=== PATIENT | female | born 1950 | race Caucasian/White ===

== ENCOUNTER 2023-02-07 10:59 | Day surgery (SDC) | payer MEDICARE, BC, SELFPAY ==
--- NOTE | 2023-02-07 06:52 | W.PREOPHP ---
Assessment and Plan Assessment and plan (1) Cortical age-related cataract, right eye: Status: Acute Assessment and plan: Assessment: Visually significant cataract of the right eye. Plan: Cataract extraction with lens implantation of the right eye. (2) Nuclear age-related cataract, right eye: Status: Acute Assessment and plan: Assessment: Visually significant cataract of the right eye. Plan: Cataract extraction with lens implantation of the right eye. History of Present Illness History of Present Illness Chief Complaint: Progressive decreased vision, both eyes Narrative: The patient is a 72-year-old lady with history of progressive decreased vision in both eyes at both distance and near. She notes significant difficulty with glare with night driving. On examination she was noted to have bilateral nuclear/cortical cataract with best corrected vision of 20/50 in each eye. 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 The option of cataract surgery was offered to the patient and she felt she was symptomatic enough that she wished to proceed, understanding that postoperative visual acuity will be limited by the presence of her pre-existing chorioretinopathy. Review of Systems All systems reviewed & are unremarkable except as noted in HPI and below PFSH All Active Problems Cortical age-related cataract, right eye (Acute) Nuclear age-related cataract, right eye (Acute) Medical History Barretts esophagus Central serous chorioretinopathy of both eyes De Quervain's tenosynovitis DUB (dysfunctional uterine bleeding) Generalized osteoarthritis HLD (hyperlipidemia) Hypoglycemia Insomnia Lipoma Migraine Mild persistent asthma Pleuritic chest pain Recurrent major depression pt denies this SVT (supraventricular tachycardia) 2020 TGA (transient global amnesia) TIA (transient ischemic attack) questionable-pt states they found that it was not a TIA but TGA Vitamin D deficiency Surgical History H/O cardiac radiofrequency ablation 2008 History of back surgery History of hip surgery Hx of appendectomy Hx of cataract extraction Hx of colonoscopy Hx of esophagogastroduodenoscopy Hx of excision of mass Hx of foot surgery Hx of tonsillectomy Hx of total knee replacement Hx of tubal ligation S/P skin biopsy Social History Smoking/Tobacco Use Status: Former Tobacco Use Quit Date: 07/07/77 Smoking risk assessment performed?: Yes Alcohol Intake: current Alcohol Intake frequency: a few times a week Drug use: Never Substance use type: does not use Housing: house Do you feel safe at home: Yes Do you feel safe in your relationship?: Yes Meds Allergies and Home Medications Allergies Allergy/AdvReac Type Severity Reaction Status Date / Time amoxicillin [From Augmentin] Allergy Intermediate Itching Unverified 02/07/23 11:21 clavulanic acid Allergy Intermediate Itching Unverified 02/07/23 11:21 [From Augmentin] morphine Allergy Intermediate Itching Unverified 02/07/23 11:21 sulfamethoxazole Allergy Intermediate Other (See Unverified 02/07/23 11:21 [From Bactrim] Comment) trimethoprim [From Bactrim] Allergy Intermediate Other (See Unverified 02/07/23 11:21 Comment) Dry Fruits Allergy Intermediate Other (See Uncoded 02/07/23 11:21 Comment) Home Medications Medication Instructions Recorded Confirmed Type ascorbic acid (vitamin C) 1,000 mg 1,000 mg PO DAILY 02/06/23 02/07/23 History tablet aspirin 81 mg capsule,delayed 81 mg PO DAILY 02/06/23 02/07/23 History release budesonide-formoterol HFA 160 1 inh inhalation QAM 02/06/23 02/07/23 History mcg-4.5 mcg/actuation aerosol inhaler (Symbicort) budesonide-formoterol HFA 80 1 inh inhalation DAILY 02/06/23 02/07/23 History mcg-4.5 mcg/actuation aerosol inhaler (Symbicort) fsvqkjwdgt-andkuwm-cemihtvb 50 1 cap PO Q8H PRN 02/06/23 02/07/23 History mg-325 mg-40 mg capsule calcium carbonate 600 mg calcium 600 mg PO DAILY 02/06/23 02/07/23 History (1,500 mg) tablet dexlansoprazole 60 mg 60 mg PO DAILY 02/06/23 02/07/23 History capsule,biphase delayed release (Dexilant) loratadine 10 mg tablet 10 mg PO DAILY 02/06/23 02/07/23 History lorazepam 1 mg tablet (Ativan) 1 mg PO DIRECTED 02/06/23 02/07/23 History magnesium 500 mg tablet 500 mg PO DAILY 02/06/23 02/07/23 History montelukast 10 mg tablet 10 mg PO DAILY 02/06/23 02/07/23 History Exam Eyes Other: Most recent ocular examination is significant for best corrected vision of 20/50 in each eye. Extract motility is normal. Intraocular pressure is 14 OD, 15 OS. Slit-lamp examination is significant for pupils dilating to 5 mm OU. Moderate nuclear with mild cortical cataract OU. Dilated funduscopic examination revealed disc cupping of 0.2 OD 0.15 OS with normal vessels, macula, peripheral retina and vitreous. There are some pigment clumping in the right macula. Resp Auscultation: clear to auscultation bilaterally Cardio Rate: regular rate Rhythm: regular rhythm
[2023-02-07 11:10] VITALS: BP 117/76; PULSE 64; RESP 6; TEMP 36; O2SAT 98
--- NOTE | 2023-02-07 11:16 | W.ANESPRE ---
General Info Date of Service Date Performed: 02/07/23 Height: 5 ft 6 in Weight: 78.471 kg Body Mass Index (BMI): 27.9 Surgical Procedure: Operation Date: 02/07/23 12:55 Proposed Procedure Side Surgeon p Cataract Extraction with IOL Implant Right Deondre Saunders MD Meds Allergies and Home Medications Allergies Allergy/AdvReac Type Severity Reaction Status Date / Time amoxicillin [From Augmentin] Allergy Intermediate Itching Unverified 02/07/23 11:21 clavulanic acid Allergy Intermediate Itching Unverified 02/07/23 11:21 [From Augmentin] morphine Allergy Intermediate Itching Unverified 02/07/23 11:21 sulfamethoxazole Allergy Intermediate Other (See Unverified 02/07/23 11:21 [From Bactrim] Comment) trimethoprim [From Bactrim] Allergy Intermediate Other (See Unverified 02/07/23 11:21 Comment) Dry Fruits Allergy Intermediate Other (See Uncoded 02/07/23 11:21 Comment) Home Medication Medication Instructions Recorded ascorbic acid (vitamin C) 1,000 mg 1,000 mg PO DAILY 02/06/23 tablet aspirin 81 mg capsule,delayed 81 mg PO DAILY 02/06/23 release budesonide-formoterol HFA 160 1 inh inhalation QAM 02/06/23 mcg-4.5 mcg/actuation aerosol inhaler (Symbicort) budesonide-formoterol HFA 80 1 inh inhalation DAILY 02/06/23 mcg-4.5 mcg/actuation aerosol inhaler (Symbicort) lyighfaxln-ghjjbyw-wwebzhxf 50 1 cap PO Q8H PRN 02/06/23 mg-325 mg-40 mg capsule calcium carbonate 600 mg calcium 600 mg PO DAILY 02/06/23 (1,500 mg) tablet dexlansoprazole 60 mg 60 mg PO DAILY 02/06/23 capsule,biphase delayed release (Dexilant) loratadine 10 mg tablet 10 mg PO DAILY 02/06/23 lorazepam 1 mg tablet (Ativan) 1 mg PO DIRECTED 02/06/23 magnesium 500 mg tablet 500 mg PO DAILY 02/06/23 montelukast 10 mg tablet 10 mg PO DAILY 02/06/23 Current Visit Medications: Current Medications Generic Name Dose Route Start Last Admin Trade Name Freq PRN Reason Stop Dose Admin Acetaminophen 1,000 mg 02/07/23 06:00 Acetaminophen 500 Mg Tab PO 03/09/23 05:59 Q4H PRN PRN Balanced Salt Solution 500 ml 02/07/23 06:00 Balanced Salt Soln.-Plus 500 Ml Bag OP 03/09/23 05:59 DIRECTED RNOEY Miscellaneous Medication 0 ml 02/07/23 06:00 Prednisolone 1%, Moxifloxacin 0.5%, Nepafenac 0.1% 5ml Btl OD 03/09/23 05:59 DIRECTED RONEY Miscellaneous Medication 0 ml 02/07/23 06:00 Tropicam./Phenyleph. (1/2.5%) 5 Ml Btl OD 03/09/23 05:59 DIRECTED RONEY Tetracaine HCl 0 ml 02/07/23 06:00 Tetracaine 0.5% 4 Ml Btl OD 03/09/23 05:59 DIRECTED RONEY PFSH Active Problems Active Problems: Problem Status Onset Code Cortical age-related cataract, right eye H25.011 Nuclear age-related cataract, right eye H25.11 Medical History Medical History Barretts esophagus Central serous chorioretinopathy of both eyes De Quervain's tenosynovitis DUB (dysfunctional uterine bleeding) Generalized osteoarthritis HLD (hyperlipidemia) Hypoglycemia Insomnia Lipoma Migraine Mild persistent asthma Pleuritic chest pain Recurrent major depression pt denies this SVT (supraventricular tachycardia) 2020 TGA (transient global amnesia) TIA (transient ischemic attack) questionable-pt states they found that it was not a TIA but TGA Vitamin D deficiency Surgical History Surgical History H/O cardiac radiofrequency ablation 2009 History of back surgery History of hip surgery Hx of appendectomy Hx of cataract extraction Hx of colonoscopy Hx of esophagogastroduodenoscopy Hx of excision of mass Hx of foot surgery Hx of tonsillectomy Hx of total knee replacement Hx of tubal ligation S/P skin biopsy Tobacco Smoking/Tobacco Use Status: Former Tobacco Use Alcohol Alcohol Intake: current Alcohol intake frequency: a few times a week Substance Use Substance use: Never Substance use type: does not use Vital Signs and Lab Results Vital Signs Most Recent Vital Signs in EMR: Temp Pulse Resp BP Pulse Ox 36 C L 64 6 L 117/76 98 08/04/23 11:10 02/07/23 11:10 02/07/23 11:10 02/07/23 11:10 02/07/23 11:10 Lab Results Blood Type / Crossmatch: No Data to Display Complete Blood Count: No Data to Display Complete Metabolic Panel: No Data to Display Liver Function Panel: No Data to Display Coagulation Panel: No Data to Display Cardiac Panel: No Data to Display Arterial Blood Gas: No Data to Display Venous Blood Gas: No Data to Display Pancreas Panel: No Data to Display Thyroid Panel: No Data to Display Infectious Disease: No Data to Display Blood Cultures: No Data to Display Toxicology Panel: No Data to Display Anesthesia Assessment and Plan Anesthesia History Personal History: No History of Anesthesia Complications Family History: No Family History of Anesthesia Complications Exercise Tolerance Exercise Tolerance: Metabolic Equivalents>4 Cardiac & Pulmonary Exam Cardiac Exam: Normal S1/S2 Heart Sounds Pulmonary Exam: Clear Bilateral Breath Sounds Implantable Cardiac Device Does patient have a Pacemaker or an ICD?: No Airway Exam Known Difficult Airway: No Mallampati Class: 2 Mouth Opening: Normal (> 3cm) Thyromental Distance: Greater than 3 cm Neck Range of Motion: Full ROM Neck Circumference: Normal Teeth Condition: Normal Dentition ASA Classification ASA Score: ASA 2 Emergency Case?: No NPO Status NPO Status: NPO Clears >2 hours, Solids >8 hours Anesthesia Plan Resuscitation Status: Full Code Anesthesia Technique: MAC Anesthesia Airway Planned: Natural Airway Monitors Used: Standard Monitors Preoperative Comments:: 72 yo female for cataract: PMhx: SVT, Barretts esophagus, TIAs/TGAs, Asthma. Per patient only TGA and only once, no symptoms since. Everything else well controlled.
[2023-02-07 11:18] VITALS: BMI 27.9
[2023-02-07] MEDS: Tropicam./Phenyleph. (1/2.5%) 5 ML BTL OD ×3 (11:28→11:37)
[2023-02-07] MEDS: Balanced Salt Soln.-PLUS 500 ML BAG OP (12:57)
[2023-02-07] MEDS: Tetracaine 0.5% 4 ML BTL OD (12:58)
[2023-02-07] MEDS: Lidocaine 1% Pres-Free 5 ML VIAL (12:59)
[2023-02-07] MEDS: Duovisc Viscoelastic System EACH 1 EACH (12:59)
[2023-02-07] MEDS: Phenylephrine/Lidocaine (15/10) MG/ML 1 ML VIAL (13:00)
[2023-02-07] MEDS: Povidone-Iodine Ophth 30 ML BTL (13:00)
--- NOTE | 2023-02-07 13:03 | W.PM.DSUDISC ---
Date of service: 02/07/23 Time of Service: 13:03 Discharge Plan Disposition Patient Disposition: Home Discharge Details Attending Provider: Deondre Saunders Primary Care Provider: Nikki Rosa Home Meds and New Rx's Prescriptions: No Action ascorbic acid (vitamin C) 1,000 mg Tablet 1,000 mg PO DAILY magnesium 500 mg Tablet 500 mg PO DAILY aspirin 81 mg Capsule,Delayed Release(Dr/Ec) 81 mg PO DAILY calcium carbonate 600 mg calcium (1,500 mg) Tablet 600 mg PO DAILY qncledtlai-dbgjadv-wsrrssvr 50-325-40 mg capsule 1 cap PO Q8H PRN Patient Comments: 1 cap orally every 8 hours As Needed for headahes montelukast 10 mg tablet 10 mg PO DAILY Patient Comments: TAKE ONE TABLET EVERY DAY lorazepam [Ativan] 1 mg tablet 1 mg PO DIRECTED Patient Comments: TAKE 1 OR 2 TABLETS BY MOUTH DAILY AT BEDTIME FOR ANXIETY loratadine 10 mg Tablet 10 mg PO DAILY budesonide-formoterol [Symbicort] 80-4.5 mcg/actuation Hfa Aerosol Inhaler 1 inh INHALATION DAILY budesonide-formoterol [Symbicort] 160-4.5 mcg/actuation HFA aerosol inhaler 1 inh INHALATION QAM Patient Comments: 1 puff inhaled every morning (0900) dexlansoprazole [Dexilant] 60 mg capsule,biphase delayed releas 60 mg PO DAILY Patient Comments: TAKE ONE CAPSULE BY MOUTH DAILY Discharge Instructions Stand Alone Forms: Post-op Topical Cataract, Kasandra Padron (DSU) Discharge Orders Discharge Orders: Discharge Order (Routine); Ordered 02/07/23 Ordered By: Deondre Saunders DS: Diagnosis Discharge Diagnosis (1) Cortical age-related cataract, right eye: Status: Resolved (2) Nuclear age-related cataract, right eye: Status: Resolved
--- NOTE | 2023-02-07 13:04 | W.PM.OP ---
Date of service: 02/07/23 Time of Service: 13:04 Operative Note Operative Note DATE OF PROCEDURE: 02/07/23 PRE-OP DIAGNOSIS: Nuclear/cortical cataract, right eye POST-OP DIAGNOSIS: same PROCEDURE: Cataract extraction using phacoemulsification with intraocular lens implant, right eye SURGEON: Deondre Saunders ANESTHESIA TYPE: Local By Surgeon and MAC Refer to Anesthesia Record ESTIMATED BLOOD LOSS: 0 PATHOLOGY: none sent COMPLICATIONS: None Patient was transported to: same day Patient's condition: stable Implants: Raj [employer] Raj Tecnis Eyhance [id number] Indications: Progressive visual loss due to cataract, right eye Procedure Description: CATARACT SURGERY OPERATIVE REPORT PREOPERATIVE DIAGNOSIS: 1. Nuclear/cortical cataract, right eye POSTOPERATIVE DIAGNOSIS: Same OPERATION: 1. Cataract extraction using phacoemulsification with posterior chamber intraocular lens implant, right eye. IOL: IOL Wind Field Manager/Model: Raj [employer] Raj Tecnis Eyhance DIB00 IOL Power: + 20.0 diopters IOL Serial Number: [id number] Optic Diameter: 6.0mm Haptic/Overall Diameter: 13.0mm PHACO INFO: José Vune Laburion Vision System with OZil and Active Fluidics Cumulative Dispersed Energy (CDE): 9.85 seconds SURGEON: Deondre Saunders MD, KELSEY ANESTHESIA: Monitored Anesthesia Care (MAC), with local sub-tenon's anesthetic infiltration COMPLICATIONS: None SPECIMENS: None INDICATIONS FOR PROCEDURE: The patient is a 72-year-old lady with history of diminished visual acuity in her right eye secondary to the development of nuclear/cortical cataract. She is significantly symptomatic that she desires cataract surgery and attempt to improve and maximize her vision. The option of cataract surgery was offered to the patient and she wished to proceed. See office notes for detailed information. PROCEDURE: The correct surgical eye was identified and marked as the right eye and the pupil was dilated in the preoperative area using mydriatics and cycloplegics. The dilated pupil size was 7.0 mm. The patient elected to proceed without oral sedation. The patient was brought to the operating room where cardiopulmonary monitoring was instituted and surgical time-out was performed, confirming the correct operative eye and IOL power. Topical anesthesia was administered and ophthalmic povidone-iodine 5% was instilled into the conjunctival fornices. The aminah-ocular area was prepped with Betadine 10% solution and draped in the usual sterile fashion for intraocular surgery, including an aperture drape. A Tegaderm transparent film dressing was cut in half and used to cover the lashes and lid margins. Care was taken to sequester the lashes and lid margins under the Tegaderm dressing. A lid speculum was placed between the lids of the operative eye and the José Lux[employer] Revalia operating microscope was maneuvered into position. Jose Manuel scissors were then used to make a conjunctival buttonhole approximately 6mm posterior to the limbus in the inferonasal quadrant. Blunt dissection was carried out to expose bare sclera, and a blunt-tipped sub-tenon?s anesthesia cannula was introduced and passed posteriorly along the globe where non-preserved plain lidocaine was injected into posterior sub-Tenon?s space. A sideport knife was used to make a paracentesis port. Intraocular phenylephrine/lidocaine was injected into the anterior chamber. The anterior chamber was filled with viscoelastic. A keratome knife was used to construct a 2-plane clear corneal tunnel extending 2.0mm into clear cornea. A flap was raised on the anterior capsule and capsulorhexis forceps were used to complete a continuous curvilinear capsulorhexis of 5.0 mm. Balanced salt solution was then used to perform cortical cleaving hydrodissection and nuclear hydrodelineation until the lens could be freely rotated within the capsular bag. The lens nucleus was then disassembled and removed within the capsular bag and iris plane using phacoemulsification. Residual cortical material was removed using the I/A handpiece. The posterior capsule was carefully polished to remove as much residual lens epithelial cells as safely possible. The capsular bag was then inflated and the anterior chamber deepened with cohesive viscoelastic. The lens implant described above was inserted into the capsular bag using the Raj and Parag Simplicity pre-loaded injector. A Kuglen hook was used to dial the IOL into position. Residual viscoelastic was then removed first from posterior to the IOL, then from the anterior chamber using the I/A handpiece. The lens implant was noted to center nicely within the capsular bag. The incisions were stromally hydrated, and the anterior chamber was reformed using BSS. Then 0.5cc of moxifloxacin 1.0mg/ml were injected into the capsular bag and anterior chamber. The incisions were checked with a Weck spear and found to be secure. Several drops of ophthalmic povidone-iodine 5% were then applied to the eye followed by two drops of Imprimis combination prednisolone/moxifloxacin/nepafenac solution. The drapes were removed and a clear plastic protective eye shield was placed over the eye. The patient was then returned to Same Day Surgery in stable condition.
[2023-02-07 13:10] VITALS: BP 113/80; PULSE 59; RESP 16; TEMP 36.5; O2SAT 95
--- NOTE | 2023-02-07 13:30 | W.ANESPOSTOP ---
Postoperative Evaluation Date, Time and Location Date Performed: 02/07/23 Time Performed: 13:10 Patient Location: Day Surgery Unit Vital Signs Most Recent Imported Vital Signs: Most Recent Vital Signs Temp Pulse Resp BP Pulse Ox 36.5 C 59 L 16 113/80 95 02/07/23 13:10 02/07/23 13:10 02/07/23 13:10 02/07/23 13:10 02/07/23 13:10 Pain Score Most Recent Pain Score: Most Recent Pain Score Pain Level 0 02/07/23 13:10 Assessment Mental Status: Awake (Alert & Oriented to Patient Baseline) Airway and Respiratory Function: Patent airway with normal (patient baseline) respiratory exam Cardiovascular Function: Hemodynamically Stable Hydration Status: Adequately Hydrated Nausea & Vomiting: No Nausea or Vomiting Pain: Pt. Denies Any Pain Peripheral Nerve Block: Other (Local by Dr. Saunders)
== END 2023-02-07 13:36 | disposition home or self-care (01) ==
PROVIDERS: PCP Family Medicine; Visit Provider Ophthalmology
PROC: (CPT 66984; principal; 2023-02-07 12:45)
DX: H25.011 Cortical age-related cataract, right eye (principal); H25.11 Age-related nuclear cataract, right eye
CPT/HCPCS: 66984; V2632

== ENCOUNTER 2023-02-21 06:48 | Day surgery (SDC) | payer MEDICARE, BC, SELFPAY ==
[2023-02-21 07:21] VITALS: BP 117/74; PULSE 66; RESP 16; TEMP 36.3; O2SAT 96
[2023-02-21] MEDS: Tropicam./Phenyleph. (1/2.5%) 5 ML BTL OS ×3 (07:28→07:38)
--- NOTE | 2023-02-21 07:39 | W.ANESPRE ---
General Info Date of Service Date Performed: 02/21/23 Height: 5 ft 6 in Weight: 79.5 kg Body Mass Index (BMI): 28.3 Surgical Procedure: Operation Date: 02/21/23 08:25 Proposed Procedure Side Surgeon p Cataract Extraction with IOL Implant Left Deondre Saunders MD Meds Allergies and Home Medications Allergies Allergy/AdvReac Type Severity Reaction Status Date / Time amoxicillin [From Augmentin] Allergy Intermediate Itching Unverified 02/19/23 11:45 clavulanic acid Allergy Intermediate Itching Unverified 02/19/23 11:45 [From Augmentin] morphine Allergy Intermediate Itching Unverified 02/19/23 11:45 sulfamethoxazole Allergy Intermediate Other (See Unverified 02/19/23 11:45 [From Bactrim] Comment) trimethoprim [From Bactrim] Allergy Intermediate Other (See Unverified 02/19/23 11:45 Comment) Dry Fruits Allergy Intermediate Other (See Uncoded 02/19/23 11:45 Comment) Home Medication Medication Instructions Recorded ascorbic acid (vitamin C) 1,000 mg 1,000 mg PO DAILY 02/06/23 tablet aspirin 81 mg capsule,delayed 81 mg PO DAILY 02/06/23 release budesonide-formoterol HFA 160 1 inh inhalation QAM 02/06/23 mcg-4.5 mcg/actuation aerosol inhaler (Symbicort) budesonide-formoterol HFA 80 1 inh inhalation DAILY 02/06/23 mcg-4.5 mcg/actuation aerosol inhaler (Symbicort) ibnqkhvbhg-yvtnbzn-qrhmwjhe 50 1 cap PO Q8H PRN 02/06/23 mg-325 mg-40 mg capsule calcium carbonate 600 mg calcium 600 mg PO DAILY 02/06/23 (1,500 mg) tablet dexlansoprazole 60 mg 60 mg PO DAILY 02/06/23 capsule,biphase delayed release (Dexilant) loratadine 10 mg tablet 10 mg PO DAILY 02/06/23 lorazepam 1 mg tablet (Ativan) 1 mg PO DIRECTED 02/06/23 magnesium 500 mg tablet 500 mg PO DAILY 02/06/23 montelukast 10 mg tablet 10 mg PO DAILY 02/06/23 acetaminophen 500 mg tablet 1,000 mg PO PRN 02/21/23 Current Visit Medications: Current Medications Generic Name Dose Route Start Last Admin Trade Name Freq PRN Reason Stop Dose Admin Acetaminophen 1,000 mg 02/21/23 06:00 Acetaminophen 500 Mg Tab PO 03/23/23 05:59 Q4H PRN PRN Balanced Salt Solution 500 ml 02/21/23 06:00 Balanced Salt Soln.-Plus 500 Ml Bag OP 03/23/23 05:59 DIRECTED RONEY Miscellaneous Medication 0 ml 02/21/23 06:00 Prednisolone 1%, Moxifloxacin 0.5%, Nepafenac 0.1% 5ml Btl OS 03/23/23 05:59 DIRECTED RONEY Miscellaneous Medication 0 ml 02/21/23 06:00 02/21/23 07:38 Tropicam./Phenyleph. (1/2.5%) 5 Ml Btl OS 03/23/23 05:59 1 drp DIRECTED RONEY Administration Tetracaine HCl 0 ml 02/21/23 06:00 Tetracaine 0.5% 4 Ml Btl OS 03/23/23 05:59 DIRECTED RONEY PFSH Active Problems Active Problems: Problem Status Onset Code Cortical age-related cataract, left eye H25.012 Nuclear age-related cataract, left eye H25.12 Cortical age-related cataract, right eye H25.011 Nuclear age-related cataract, right eye H25.11 Medical History Medical History Barretts esophagus Central serous chorioretinopathy of both eyes De Quervain's tenosynovitis DUB (dysfunctional uterine bleeding) Generalized osteoarthritis HLD (hyperlipidemia) Hypoglycemia Insomnia Lipoma Migraine Mild persistent asthma Pleuritic chest pain Recurrent major depression pt denies this SVT (supraventricular tachycardia) 2020 TGA (transient global amnesia) TIA (transient ischemic attack) questionable-pt states they found that it was not a TIA but TGA Vitamin D deficiency Surgical History Surgical History H/O cardiac radiofrequency ablation 2008 History of back surgery History of hip surgery Hx of appendectomy Hx of cataract extraction Hx of colonoscopy Hx of esophagogastroduodenoscopy Hx of excision of mass Hx of foot surgery Hx of tonsillectomy Hx of total knee replacement Hx of tubal ligation S/P skin biopsy Tobacco Smoking/Tobacco Use Status: Former Tobacco Use Alcohol Alcohol Intake: current Alcohol intake frequency: a few times a week Substance Use Substance use: Never Substance use type: does not use Vital Signs and Lab Results Vital Signs Most Recent Vital Signs in EMR: Most Recent Vital Signs Temp Pulse Resp BP Pulse Ox 36.3 C L 66 16 117/74 96 02/21/23 07:21 02/21/23 07:21 02/21/23 07:21 02/21/23 07:21 02/21/23 07:21 Lab Results Blood Type / Crossmatch: No Data to Display Complete Blood Count: No Data to Display Complete Metabolic Panel: No Data to Display Liver Function Panel: No Data to Display Coagulation Panel: No Data to Display Cardiac Panel: No Data to Display Arterial Blood Gas: No Data to Display Venous Blood Gas: No Data to Display Pancreas Panel: No Data to Display Thyroid Panel: No Data to Display Infectious Disease: No Data to Display Blood Cultures: No Data to Display Toxicology Panel: No Data to Display Anesthesia Assessment and Plan Anesthesia History Personal History: No History of Anesthesia Complications Family History: No Family History of Anesthesia Complications Exercise Tolerance Exercise Tolerance: Metabolic Equivalents>4 Pertinent Negatives Pertinent Negatives: No Symptoms of GERD, No Major Cardiovascular Symptoms or Complaints and No Major Pulmonary Symptoms or Complaints Cardiac & Pulmonary Exam Cardiac Exam: Normal S1/S2 Heart Sounds Pulmonary Exam: Clear Bilateral Breath Sounds Implantable Cardiac Device Does patient have a Pacemaker or an ICD?: No Airway Exam Known Difficult Airway: No Mallampati Class: 2 Mouth Opening: Normal (> 3cm) Thyromental Distance: Greater than 3 cm Neck Range of Motion: Full ROM Neck Circumference: Normal Teeth Condition: Normal Dentition ASA Classification ASA Score: ASA 2 Emergency Case?: No NPO Status NPO Status: NPO Clears >2 hours, Solids >8 hours Anesthesia Plan Resuscitation Status: Full Code Anesthesia Technique: MAC Anesthesia Airway Planned: Natural Airway Monitors Used: Standard Monitors
[2023-02-21 07:40] VITALS: BMI 28.3
[2023-02-21] MEDS: Lidocaine 1% Pres-Free 5 ML VIAL (08:03)
[2023-02-21] MEDS: Balanced Salt Soln.-PLUS 500 ML BAG OP ×2 (08:09→08:12)
[2023-02-21] MEDS: Tetracaine 0.5% 4 ML BTL OS (08:14)
[2023-02-21] MEDS: Povidone-Iodine Ophth 30 ML BTL (08:17)
[2023-02-21] MEDS: Phenylephrine/Lidocaine (15/10) MG/ML 1 ML VIAL (08:18)
[2023-02-21] MEDS: Duovisc Viscoelastic System EACH 1 EACH (08:24)
--- NOTE | 2023-02-21 08:29 | W.PM.DSUDISC ---
Date of service: 02/21/23 Time of Service: 08:30 Discharge Plan Disposition Patient Disposition: Home Discharge Details Attending Provider: Deondre Saunders Primary Care Provider: Nikki Rosa Home Meds and New Rx's Prescriptions: No Action ascorbic acid (vitamin C) 1,000 mg Tablet 1,000 mg PO DAILY magnesium 500 mg Tablet 500 mg PO DAILY aspirin 81 mg Capsule,Delayed Release(Dr/Ec) 81 mg PO DAILY calcium carbonate 600 mg calcium (1,500 mg) Tablet 600 mg PO DAILY kewmtnlyxf-obtrizw-gdrknyie 50-325-40 mg capsule 1 cap PO Q8H PRN Patient Comments: 1 cap orally every 8 hours As Needed for headahes montelukast 10 mg tablet 10 mg PO DAILY Patient Comments: TAKE ONE TABLET EVERY DAY lorazepam [Ativan] 1 mg tablet 1 mg PO DIRECTED Patient Comments: TAKE 1 OR 2 TABLETS BY MOUTH DAILY AT BEDTIME FOR ANXIETY loratadine 10 mg Tablet 10 mg PO DAILY budesonide-formoterol [Symbicort] 80-4.5 mcg/actuation Hfa Aerosol Inhaler 1 inh INHALATION DAILY budesonide-formoterol [Symbicort] 160-4.5 mcg/actuation HFA aerosol inhaler 1 inh INHALATION QAM Patient Comments: 1 puff inhaled every morning (0900) dexlansoprazole [Dexilant] 60 mg capsule,biphase delayed releas 60 mg PO DAILY Patient Comments: TAKE ONE CAPSULE BY MOUTH DAILY acetaminophen [Tylenol Ex Str Arthritis Pain] 500 mg Tablet 1,000 mg PO PRN Discharge Instructions Stand Alone Forms: Post-op Topical CataractKasandra (DSU) Discharge Orders Discharge Orders: Discharge Order (Routine); Ordered 02/21/23 Ordered By: Deondre Saunders DS: Diagnosis Discharge Diagnosis (1) Cortical age-related cataract, left eye: Status: Resolved (2) Nuclear age-related cataract, left eye: Status: Resolved
--- NOTE | 2023-02-21 08:30 | ROE_ITS ---
Date of service: 02/21/23 Time of Service: 08:30 Operative Note Operative Note DATE OF PROCEDURE: 02/21/23 PRE-OP DIAGNOSIS: Nuclear/cortical cataract, left eye POST-OP DIAGNOSIS: same PROCEDURE: Cataract extraction using phacoemulsification with intraocular lens implant, left eye SURGEON: Deondre Saunders ANESTHESIA TYPE: Local By Surgeon and MAC Refer to Anesthesia Record PATHOLOGY: none sent COMPLICATIONS: None Patient was transported to: same day Patient's condition: stable Implants: Raj and Raj Tecnis Eyhance DIB00 Indications: Progressive decreased vision due to cataract, left eye Procedure Description: CATARACT SURGERY OPERATIVE REPORT PREOPERATIVE DIAGNOSIS: 1. Nuclear/cortical cataract, left eye POSTOPERATIVE DIAGNOSIS: Same OPERATION: 1. Cataract extraction using phacoemulsification with posterior chamber intraocular lens implant, left eye. IOL: IOL Upper Cutter Out/Model: Raj & Raj [employer]ecnis Eyhance DIB00 IOL Power: + 19.5 diopters IOL Serial Number: [id number] Optic Diameter: 6.0 mm Haptic/Overall Diameter: 13.0 mm PHACO INFO: JoséWISE s.r.l Vision System with OZil and Active Fluidics Cumulative Dispersed Energy (CDE): 9.03 seconds SURGEON: Deondre Saunders MD, KELSEY ANESTHESIA: Monitored A [facility] (MAC), with local sub-tenon's anesthetic infiltration COMPLICATIONS: None SPECIMENS: None INDICATIONS FOR PROCEDURE: The patient is a 72-year-old lady with history of diminished visual acuity in both eyes secondary to the development of bilateral cataracts. She has already undergone cataract surgery in the right eye and is doing well postoperatively. She now presents for cataract surgery in the left eye. PROCEDURE: The correct surgical eye was identified and marked as the left eye and the pupil was dilated in the preoperative area using mydriatics and cycloplegics. The dilated pupil size was 7.0 mm. The patient elected to proceed without oral sedation. The patient was brought to the operating room where cardiopulmonary monitoring was instituted and surgical time-out was performed, confirming the correct operative eye and IOL power. Topical anesthesia was administered and ophthalmic povidone-iodine 5% was instilled into the conjunctival fornices. The aminah-ocular area was prepped with Betadine 10% solution and draped in the usual sterile fashion for intraocular surgery, including an aperture drape. A Tegaderm transparent film dressing was cut in half and used to cover the lashes and lid margins. Care was taken to sequester the lashes and lid margins under the Tegaderm dressing. A lid speculum was placed between the lids of the operative eye and the José [employer] Rev[employer] operating microscope was maneuvered into position. Jose Manuel scissors were then used to make a conjunctival buttonhole approximately 6mm posterior to the limbus in the inferonasal quadrant. Blunt dissection was carried out to expose bare sclera, and a blunt-tipped sub-tenon?s anesthesia cannula was introduced and passed posteriorly along the globe where non- preserved plain lidocaine was injected into posterior sub-Tenon?s space. A sideport knife was used to make a paracentesis port. Intraocular phenylephrine/lidocaine was injected into the anterior chamber.. The anterior chamber was filled with viscoelastic. A keratome knife was used to construct a 2-plane near-clear corneal tunnel extending 2.0mm into clear cornea. A flap was raised on the anterior capsule and capsulorhexis forceps were used to complete a continuous curvilinear capsulorhexis of 5.0 mm. Balanced salt solution was then used to perform cortical cleaving hydrodi ssection and nuclear hydrodelineation until the lens could be freely rotated within the capsular bag. The lens nucleus was then disassembled and removed within the capsular bag and iris plane using phacoemulsification. Residual cortical material was removed using the irrigation/aspiration handpiece. The posterior capsule was carefully polished to remove as much residual lens epithelial cells as safely possible. The capsular bag was then inflated and the anterior chamber deepened with viscoelastic. The lens implant described above was inserted into the capsular bag using the Raj and Raj Simplicity pre- loaded injector. A Kuglen hook was used to dial the IOL into position. Residual viscoelastic was then removed first from posterior to the IOL, then from the anterior chamber using the I/A handpiece. The lens implant was noted to center nicely within the capsular bag. The incisions were stromally hydrated, and the anterior chamber was reformed using BSS. Then 0.5cc of moxifloxacin 1.0mg/ml were injected into the capsular bag and anterior chamber. The incisions were checked with a Weck spear and found to be secure. Several drops of ophthalmic povidone-iodine 5% were then applied to the eye followed by two drops of Imprimis combination prednisolone/moxifloxacin/nepafenac solution. The drapes were removed and a clear plastic protective eye shield was placed over the eye. The patient was then returned to [facility] Day Surgery in stable condition.
[2023-02-21 08:31] VITALS: BP 110/72; PULSE 64; RESP 16; TEMP 36.2; O2SAT 95
--- NOTE | 2023-02-21 08:47 | W.ANESPOSTOP ---
Postoperative Evaluation Date, Time and Location Date Performed: 02/21/23 Time Performed: 08:42 Patient Location: Day Surgery Unit Vital Signs Most Recent Imported Vital Signs: Most Recent Vital Signs Temp Pulse Resp BP Pulse Ox 36.2 C L 64 16 110/72 95 02/21/23 08:31 02/21/23 08:31 02/21/23 08:31 02/21/23 08:31 02/21/23 08:31 Pain Score Most Recent Pain Score: Most Recent Pain Score Pain Level 0 02/21/23 08:31 Assessment Mental Status: Awake (Alert & Oriented to Patient Baseline) Airway and Respiratory Function: Patent airway with normal (patient baseline) respiratory exam Cardiovascular Function: Hemodynamically Stable Hydration Status: Adequately Hydrated Nausea & Vomiting: No Nausea or Vomiting Pain: Pt. Denies Any Pain Peripheral Nerve Block: Patient did not receive a nerve block
== END 2023-02-21 09:03 | disposition home or self-care (01) ==
LOC: SUR 06:48
PROVIDERS: PCP Family Medicine; Visit Provider Ophthalmology
PROC: (CPT 66984; principal; 2023-02-21 08:15)
DX: H25.012 Cortical age-related cataract, left eye (principal); H25.12 Age-related nuclear cataract, left eye
CPT/HCPCS: 66984; V2632